=== PATIENT | female | born 1955 | race Caucasian/White ===

== ENCOUNTER 2020-07-25 11:04 | Emergency (ER) | payer SELFPAY ==
[2020-07-25 12:36] VITALS: BP 142/74
--- NOTE | 2020-07-25 14:02 | Emergency Department Report ---
ED General Adult HPI - General Chief complaint: Upper Respiratory Infection Stated complaint: SNEEZING/CONGESTION/COUGH Time Seen by Provider: 07/25/20 13:49 Source: patient Mode of arrival: Ambulatory Limitations: No Limitations - History of Present Illness Initial comments: 64-year-old female patient with no past medical history presents to [facility] with complaints of sneezing, nasal congestion, and nonproductive cough for 4 days. She has tried [id number] nasal spray with limited relief. Her grandchild at home has been exhibiting similar symptoms. She went to her primary care provider, who was concerned about COVID-19 symptoms, and sent her to the emergency department. Yesterday, patient began noticing chest tightness and shortness of breath after coughing. States she does not experience these symptoms when she is not coughing. Patient does not smoke. No venous thromboembolism risk factors identified on history. Denies fever, chills, palpitations, nausea, vomiting, diaphoresis, lower extremity pain/swelling, syncope. Denies other complaints at this time. - Related Data Previous Rx's Medication Instructions Recorded Last Taken Type Valacyclovir HCl [Valtrex] 1,000 mg PO TID #21 tablet 11/10/14 Unknown Rx predniSONE [Deltasone] 20 mg PO BID 6 Days tab 11/10/14 Unknown Rx Brompheniramine/Pseudoephed/Dm 10 ml PO Q4H #1 bottle 07/25/20 Unknown Rx [Bromfed Dm Cough Syrup] Allergies Allergy/AdvReac Type Severity Reaction Status Date / Time No Known Allergies Allergy Verified 11/10/14 21:19 ED Review of Systems ROS: Stated complaint: SNEEZING/CONGESTION/COUGH Other details as noted in HPI Other: GENERAL: Negative for fever, chills, weight change, anorexia, fatigue. ENT: Positive for sneezing, nasal congestion. CARDIOVASCULAR: Positive for chest pain. PULMONARY: Positive for cough. GASTROINTESTINAL: Negative for abdominal pain, nausea, vomiting, diarrhea, constipation. MUSCULOSKELETAL: Negative for joint pain, joint swelling, myalgias, back pain, neck pain. NEUROLOGICAL: Negative for headache, seizure, syncope, paresthesias, weakness. INTEGUMENTARY: Negative for erythema, rash, diaphoresis, laceration, ecchymosis. HEMATOLOGICAL: Negative for hemoptysis, hematemesis, hematochezia, hematuria. PSYCHIATRIC: Negative for hallucinations, suicidal ideation, homicidal ideation, anxiety, depression. ED Past Medical Hx - Past Medical History Previous Medical History?: Yes Additional medical history: rectal colon ca - Surgical History Additional Surgical History: hysterectomy - Social History Smoking Status: Never Smoker Substance Use Type: None - Medications Home Medications: Home Medications Medication Instructions Recorded Confirmed Last Taken Type Valacyclovir HCl [Valtrex] 1,000 mg PO TID #21 tablet 11/10/14 Unknown Rx predniSONE [Deltasone] 20 mg PO BID 6 Days tab 11/10/14 Unknown Rx Brompheniramine/Pseudoephed/Dm 10 ml PO Q4H #1 bottle 07/25/20 Unknown Rx [Bromfed Dm Cough Syrup] ED Physical Exam - General Limitations: No Limitations - Other Other exam information: General: Awake and alert. No acute distress. Head: Atraumatic, normocephalic. Eyes: EOMI. Pupils are equal and round. Normal sclera and conjunctiva. ENT: Oral mucosa is moist. Normal pharyngeal exam. Neck: Supple. No lymphadenopathy. Pulmonary: No respiratory distress. Clear to auscultation bilaterally. Cardiac: Regular rate and rhythm. Pulses are palpable and equal bilaterally. No lower extremity cyanosis or edema. Skin: Warm and dry. No rashes. Abdomen: Soft, non-tender, non-protuberant. No guarding, rigidity, or rebound. Bowel sounds are normal. No organomegaly or masses noted. Back: Normal alignment. No CVA tenderness. Extremities: Symmetrical. Full range of motion intact. Neurological: Alert and oriented, appropriately interactive, no focal deficits. Psych: Cooperative. Appropriate mood and affect. Speech is evenly metered. Thoughts are logically construed. ED Course Vital Signs 07/25/20 12:34 Temperature 97.7 F Pulse Rate 68 Respiratory 20 Rate Blood Pressure 142/74 O2 Sat by Pulse 98 Oximetry ED Medical Decision Making - EKG Data 07/25/20 16:47 EKG shows normal sinus rhythm with a ventricular rate of 62 bpm. Normal axis. Normal VT interval. Normal QT interval. Good R wave progression. No ST segment changes. Over read by attending emergency physician, who agrees with this interpretation. - Medical Decision Making Differential diagnosis including but not limited to: influenza, viral upper re spiratory, pneumonia, pleural effusion, pneumothorax On evaluation, patient remains stable. No hypoxia, no respiratory distress. Chest x-ray without acute process. Patient's chest tightness is directly attributable to coughing/sneezing; she has no cardiac risk factors; she is asymptomatic at rest; and her EKG is within normal limits. No clinical indication for further cardiac diagnostic work-up on an emergent basis at this time. Patient will be discharged home with appropriate symptomatic treatment and referred to primary care provider for close outpatient follow-up. Patient expressed understanding and is agreeable to plan of care. Strict return precautions provided. Repeat exam is unremarkable and benign. History, exam, diagnostic testing, and current condition do not suggest worrisome pathology to warrant further testing, continued ED treatment, admission, or surgical evaluation at this point. Given the low probability of a significant medical illness, it would be more likely to result in harm than benefit to perform further testing at this stage. Discussed findings, presumptive diagnosis, need for follow-up and specific signs/symptoms that should prompt immediate return to the emergency department. Instructions were explained in detail to the patient in addition to giving written discharge information. Patient expressed understanding and was given the opportunity to ask questions, all of which were satisfactorily answered prior to discharge home. Critical care attestation.: If time is entered above; I have spent that time in minutes in the direct care of this critically ill patient, excluding procedure time. ED Disposition Clinical Impression: Viral upper respiratory tract infection with cough Disposition: DC-01 TO HOME OR SELFCARE Is pt being admited?: No Does the pt Need Aspirin: No Condition: Stable Instructions: Upper Respiratory Infection, Adult, [id number] Additional Instructions: Take Tylenol every 4 hours as needed for pain. Take Bromfed as directed for cough/congestion. Rest. Drink plenty of fluids. Wash hands frequently to prevent disease transmission. Do not share food or drinks with others. Follow-up with your primary care provider within 1 week. Call tomorrow to schedule an appointment. Return to the emergency department immediately for new or worsening symptoms. Specifically, return to the emergency department immediately for fever, worsening chest pain, increased difficulty breathing, palpitations, loss of consciousness, lower extremity pain/swelling, rash, or any other concerns. Prescriptions: Brompheniramine/Pseudoephed/Dm [Bromfed Dm Cough Syrup] 10 ml PO Q4H #1 bottle Referrals: MICHAEL CANALES MD [Primary Care Provider] - 3-5 Days ARLENE PALACIOS MD [Staff Physician] - 3-5 Days Time of Disposition: 16:49
--- NOTE | 2020-07-25 14:34 | XRay Report ---
CHEST 2 VIEWS INDICATION / CLINICAL INFORMATION: cough/SOB. COMPARISON: None available. FINDINGS: SUPPORT DEVICES: None. HEART / MEDIASTINUM: No significant abnormality. LUNGS / PLEURA: No significant pulmonary or pleural abnormality. No pneumothorax. ADDITIONAL FINDINGS: No significant additional findings. IMPRESSION: No acute cardiopulmonary abnormality. Signer Name: Roger Patel MD Signed: 07/25/2020 2:27 PM Workstation Name: [id number]
--- NOTE | 2020-07-27 11:32 | Electrocardiograph Report ---
[facility] Test Date: 2020-07-25 Test Time: 16:42:13 Pat Name: HÉCTOR CRAIG Department: Room: Gender: F Conference Services Manager: CLEMENTE : 1955 Requested By: JESSICA ARREOLA Order Number: [id number] Reading MD: Leslie Katz Measurements Intervals [place] Rate: 62 P: 59 ND: 144 QRS: 17 QRSD: 67 T: 28 QT: 444 QTc: 450 Interpretive Statements Sinus rhythm No previous ECG available for comparison Electronically Signed On 07-27-2020 11:32:00 EDT by Leslie Katz
== END 2020-07-25 16:57 | disposition home or self-care (01) ==
LOC: ED 11:04
DX: J06.9 Acute upper respiratory infection, unspecified (principal); B97.89 Other viral agents as the cause of diseases classified elsewhere; Z90.710 Acquired absence of both cervix and uterus; Z79.899 Other long term (current) drug therapy
CPT/HCPCS: 71046; 93005; 99283